=== PATIENT | male | born 1960 | race African-American/Black ===

== ENCOUNTER 2017-07-09 07:34 | Emergency (ER) | payer OTHER ==
[~2017-07-09] VITALS: Ht 182.9 cm; Wt 105.7 kg
[2017-07-09] MEDS ORDERED: LIDOCAINE HCL 1% LOCAL INJ 20 ML VIAL INJ ONE (08:15)
[2017-07-09 09:39] VITALS: BP 126/95
== END 2017-07-09 09:46 | disposition home or self-care (01) ==
LOC: ER 07:34
DX: L02.212 Cutaneous abscess of back [any part, except buttock and flank] (principal)
CPT/HCPCS: 10061; 99283; J2001